=== PATIENT | male | born 1990 | race Caucasian/White ===

== ENCOUNTER 2017-03-28 20:22 | Emergency (ER) | payer OTHER ==
[~2017-03-28] VITALS: Ht 165.1 cm; Wt 83.9 kg
[~2017-03-28 20:22] MED LIST: CELEXA20 MG PO
[2017-03-28 20:27] VITALS: BP 138/66
--- NOTE | 2017-03-28 21:31 | NUR ---
PT TAKEN TO BED 6
[2017-03-28] MEDS ORDERED: NACL 0.9% 1,000 ML IV ONE (21:35)
[2017-03-28] MEDS ORDERED: PANTOPRAZOLE 40 MG INJ VIAL IVP ONE (21:35)
--- NOTE | 2017-03-28 21:40 | NUR ---
26 Y/O M W/C/O VOMITING WITH BLOOD X ONE TIME, AND ABD PAIN OFF AND ON X TODAY. VSS. MED HX ANXIETY, GASTRITIS, AND SURGERY ON L LEG. PT CURRENTLY TAKES CELEXA, RANITIDINE.DENIES D; SKIN IS PINK/WARM/DRY; AAOX4 WITH EVEN AND STEADY GAIT; LUNGS CLEAR BL; HR EVEN AND REGULAR; PT DENIES ANY FEVER, CP, SOB, OR COUGH AT THIS TIME; PATIENT STATES PAIN OF 4/10 AT THIS TIME; VSS; PATIENT POSITIONED FOR COMFORT; HOB ELEVATED; BEDRAILS UP X2; BED DOWN. ER MD MADE AWARE OF PT STATUS.
--- NOTE | 2017-03-28 22:39 | NUR ---
Dr. Dawn evaluating patient at bedside.
[2017-03-28 23:44] VITALS: BP 120/63
--- NOTE | 2017-03-28 23:44 | NUR ---
Patient discharged with v/s stable. Written and verbal after care instructions given and explained. Patient alert, oriented and verbalized understanding of instructions. Ambulatory with steady gait. All questions addressed prior to discharge. ID band removed. Patient advised to follow up with PMD. Rx of SENOKOT, BENTYL, OMEPRAZOLE, ZOFRAN given. Patient educated on indication of medication including possible reaction and side effects. Opportunity to ask questions provided and answered.
== END 2017-03-28 23:44 | disposition home or self-care (01) ==
LOC: MED 20:22
DX: R10.84 Generalized abdominal pain (principal); K92.0 Hematemesis
CPT/HCPCS: 36415; 74022; 80053; 85025; 85610; 85730; 96361; 96374; 99285; C9113; J7030

== ENCOUNTER 2017-04-03 22:08 | Emergency (ER) | payer OTHER ==
[~2017-04-03] VITALS: Ht 165.1 cm; Wt 83.9 kg
[2017-04-03 22:12] VITALS: BP 141/67
[2017-04-03] MEDS ORDERED: BENTYL10 MG PO (22:31)
[2017-04-03] MEDS ORDERED: OMEPRAZOLE40 MG PO (22:31)
[2017-04-03] MEDS ORDERED: SENNA8.6 M1 PO (22:31)
--- NOTE | 2017-04-03 23:15 | NUR ---
Patient taken to bed [address] via wheelchair per specimen technician.
--- NOTE | 2017-04-03 23:15 | NUR ---
26Y M BIB SELF C/O AB PAIN NON RADIAITING, X 1 DAY. PT STATES HE WAS HERE AT [place] A FEW DAYS AGO AND WAS GIVEN PRILOSEC, SENNA, AND BENTYL BUT GOT NO RELIEF. PT DENIES ANY N/V/D, PAIN 07/06. PT DENIES ANY SOB, CP, AT THE MOMENT
--- NOTE | 2017-04-03 23:25 | NUR ---
Dr. Dawn evaluating patient at bedside.
[2017-04-03] MEDS ORDERED: NACL 0.9% 1,000 ML IV ONE (23:30)
[2017-04-03] MEDS ORDERED: KETOROLAC 30 MG/ML VIAL IVP ONE (23:30)
--- NOTE | 2017-04-04 01:20 | NUR ---
IV removed, catheter intact and site benign. Applied folded 4x4 gauze and tape to stop bleeding.
[2017-04-04 01:26] VITALS: BP 137/72
--- NOTE | 2017-04-04 01:27 | NUR ---
Patient discharged with v/s stable. Written and verbal after care instructions given and explained. Patient alert, oriented and verbalized understanding of instructions. Ambulatory with steady gait. All questions addressed prior to discharge. ID band removed. Patient advised to follow up with PMD. Rx of ULTRAM 50MG given. Patient educated on indication of medication including possible reaction and side effects. Opportunity to ask questions provided and answered.
== END 2017-04-04 01:27 | disposition home or self-care (01) ==
LOC: MED 22:08
DX: R10.84 Generalized abdominal pain (principal)
CPT/HCPCS: 36415; 74176; 80053; 85025; 85610; 85730; 96361; 96374; 99285; J1885; J7030

== ENCOUNTER 2018-03-15 16:40 | Emergency (ER) | payer SELFPAY ==
[~2018-03-15] VITALS: Ht 167.6 cm; Wt 74.8 kg
[~2018-03-15 16:40] MED LIST changes: -CELEXA20 MG PO; +CITA20TA15 PO
[2018-03-15 16:49] VITALS: BP 123/65
--- NOTE | 2018-03-15 16:56 | NUR ---
gave report to ryan ortega
--- NOTE | 2018-03-15 16:57 | NUR ---
Patient ambulated to bed 1. RN evaulating patient at bedside.
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
--- NOTE | 2018-03-15 18:10 | NUR ---
PT. RESTING COMFORTABLY IN BED, RR EVEN AND UNLABORED, PT. IS AAOX4. WILL CONTINUE TO MONITOR.
--- NOTE | 2018-03-15 18:35 | NUR ---
PT. DENIES ANY CHEST PAIN OR SHOCKING SENSATION IN CHEST. RR EVEN AND UNLABORED. DR. CALVO AWARE. WILL CONTIUE TO MONITOR.
[2018-03-15 19:17] VITALS: BP 113/65
== END 2018-03-15 19:17 | disposition home or self-care (01) ==
LOC: MED 16:40
DX: R07.89 Other chest pain (principal); F41.9 Anxiety disorder, unspecified; F17.210 Nicotine dependence, cigarettes, uncomplicated; Z79.899 Other long term (current) drug therapy
CPT/HCPCS: 93005; 99283

== ENCOUNTER 2018-08-03 20:29 | Emergency (ER) | payer OTHER ==
[~2018-08-03] VITALS: Ht 165.1 cm; Wt 79.9 kg
[2018-08-03 20:37] VITALS: BP 130/59
--- NOTE | 2018-08-03 20:37 | NUR ---
TO BED # 8 AMBULATORY, REPORT GIVEN TO IRINA WHYTE
--- NOTE | 2018-08-03 20:40 | NUR ---
PT PRESENTED ER WITH A MEDICATION REFILL REQUEST. PT TRIED TO GET HIS MEDICATION OLANZAPINE 10 MG AND DIVALPROEX EXTENDED RELEASE FROM HIS PCP 2 TIMES BUT THE FACILITY WAS CLOSED. PT HAS HX OF BIPOLAR. KNA. A/O X 4. NO PAIN 0/10 AT THIS TIME. FAMILY AT BEDSIDE.STEADY GAIT; VSS; PATIENT POSITIONED FOR COMFORT; HOB ELEVATED; BEDRAILS UP X2; BED DOWN. ER MD MADE AWARE OF PT STATUS.
--- NOTE | 2018-08-03 21:54 | NUR ---
pt sitting in bed, vitals stable.
--- NOTE | 2018-08-03 22:00 | NUR ---
AWAITING DC ORDERS FROM DR JERRY.
--- NOTE | 2018-08-03 22:44 | NUR ---
Patient discharged with v/s stable. Written and verbal after care instructions given and explained. Patient alert, oriented and verbalized understanding of instructions. Ambulatory with steady gait. All questions addressed prior to discharge. ID band removed. Patient advised to follow up with PMD. Rx of DEPAKOTE 500MG, ZYPREXA 10MG given. Patient educated on indication of medication including possible reaction and side effects. Opportunity to ask questions provided and answered.
[2018-08-03 22:45] VITALS: BP 120/60
== END 2018-08-03 22:44 | disposition home or self-care (01) ==
LOC: MED 20:29
DX: F20.9 Schizophrenia, unspecified (principal); Z76.0 Encounter for issue of repeat prescription; Z79.899 Other long term (current) drug therapy
CPT/HCPCS: 99283

== ENCOUNTER 2018-10-21 15:24 | Emergency (ER) | payer OTHER ==
[~2018-10-21] VITALS: Ht 165.1 cm; Wt 86.6 kg
[2018-10-21 15:53] VITALS: BP 133/68
--- NOTE | 2018-10-21 16:00 | NUR ---
PT AMBULATED TO BED 3
--- NOTE | 2018-10-21 16:03 | NUR ---
28Y/M BIB SELF FOR MEDICATION REFILL. PT STATES HE RAN OUT OF MEDICATION AND NEED SOME TODAY. RX: OLANZAPINE 10MG, DIVALPROEX ER 500MG PMH: ANXIETY, BIPOLAR
[2018-10-21 16:48] VITALS: BP 133/68
--- NOTE | 2018-10-21 16:48 | NUR ---
Patient discharged with v/s stable. Written and verbal after care instructions given and explained. Patient alert, oriented and verbalized understanding of instructions. Ambulatory with steady gait. All questions addressed prior to discharge. ID band removed. Patient advised to follow up with PMD. Rx of Depakote and Zyprexa given. Patient educated on indication of medication including possible reaction and side effects. Opportunity to ask questions provided and answered.
== END 2018-10-21 16:48 | disposition home or self-care (01) ==
LOC: MED 15:24
DX: F20.9 Schizophrenia, unspecified (principal); F41.9 Anxiety disorder, unspecified; F31.9 Bipolar disorder, unspecified; Z76.0 Encounter for issue of repeat prescription; Z79.899 Other long term (current) drug therapy
CPT/HCPCS: 99283

== ENCOUNTER 2018-11-27 17:41 | Emergency (ER) | payer OTHER ==
[~2018-11-27] VITALS: Ht 160 cm; Wt 89.8 kg
[2018-11-27 17:46] VITALS: BP 144/91
--- NOTE | 2018-11-27 17:52 | NUR ---
PT AMBULATED TO ER BED 10
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
[2018-11-27] MEDS ORDERED: BACITRACIN OINT 500 UNITS/GM PKT TP ONE (18:15)
--- NOTE | 2018-11-27 18:25 | NUR ---
WOUND CARE PROVIDED BY TECH
[2018-11-27 18:42] VITALS: BP 148/87
--- NOTE | 2018-11-27 18:42 | NUR ---
Patient discharged with v/s stable. Written and verbal after care instructions given and explained. Patient alert, oriented and verbalized understanding of instructions. Ambulatory with steady gait. All questions addressed prior to discharge. ID band removed. Patient advised to follow up with PMD. Rx of AUGMENTIN 875MG given. Patient educated on indication of medication including possible reaction and side effects. Opportunity to ask questions provided and answered.
== END 2018-11-27 18:42 | disposition home or self-care (01) ==
LOC: MED 17:41
DX: S41.152A Open bite of left upper arm, initial encounter (principal); F17.210 Nicotine dependence, cigarettes, uncomplicated; Z79.899 Other long term (current) drug therapy; Y04.1XXA Assault by human bite, initial encounter; Y93.89 Activity, other specified; Y92.89 Other specified places as the place of occurrence of the external cause; Y99.8 Other external cause status
CPT/HCPCS: 90471; 90715; 99283

== ENCOUNTER 2018-12-26 22:42 | Emergency (ER) | payer OTHER ==
[~2018-12-26] VITALS: Ht 160 cm; Wt 79.4 kg
[2018-12-26 22:59] VITALS: BP 136/68
--- NOTE | 2018-12-26 23:04 | NUR ---
PT BIB SELF C/O NEEDING MEDICATION REFILL OF DEPAKOTE AND ZYPREXA. PT DENIES N/V/D; SKIN IS INTACT, PINK/WARM/DRY; AAOX4, PERRL, WITH EVEN AND STEADY GAIT; LUNGS CLEAR BL, BREATHING UNLABORED; HR EVEN AND REGULAR, BL PERIPHERAL PULSES PRESENT; BS ACTIVE X4, NO TENDERNESS TO PALPATION, NO HEPATOSPLENOMEGALLY PALPATED, RESONANT TO PERCUSSION; PT DENIES ANY FEVER, CP, SOB, OR COUGH AT THIS TIME; PT STATES 0/10 PAIN AT THIS TIME; VSS; PATIENT POSITIONED FOR COMFORT; HOB ELEVATED; BEDRAILS UP X2; BED DOWN.
--- NOTE | 2018-12-26 23:04 | NUR ---
PT AMBULATED TO BED 7, REPORT TO LALIT WHYTE
[2018-12-26 23:24] VITALS: BP 130/70
--- NOTE | 2018-12-26 23:24 | NUR ---
Patient discharged with v/s stable. Written and verbal after care instructions given and explained. Patient alert, oriented and verbalized understanding of instructions. Ambulatory with steady gait. All questions addressed prior to discharge. ID band removed. Patient advised to follow up with PMD. Rx of DEPAKOTE AND ZYPREXA given. Patient educated on indication of medication including possible reaction and side effects. Opportunity to ask questions provided and answered.
== END 2018-12-26 23:24 | disposition home or self-care (01) ==
LOC: MED 22:42
DX: F41.9 Anxiety disorder, unspecified (principal); Z76.0 Encounter for issue of repeat prescription; Z79.899 Other long term (current) drug therapy
CPT/HCPCS: 99283

== ENCOUNTER 2019-02-13 17:02 | Emergency (ER) | payer OTHER ==
[~2019-02-13] VITALS: Ht 170.2 cm; Wt 94.3 kg
[2019-02-13 17:20] VITALS: BP 124/96
--- NOTE | 2019-02-13 17:30 | NUR ---
PT AMBULATED TO BED CHC
--- NOTE | 2019-02-13 17:34 | NUR ---
PT C/O MED REFILL NEEDED OF DIVALPROEX 500 MG 1 TAB DAILY AND OLANZAPINE 10 MG ONCE DAILY. DENIES CP/SOB/NVD/OTHER COMPLAINTS.
[2019-02-13 19:59] VITALS: BP 125/75
--- NOTE | 2019-02-13 19:59 | NUR ---
Patient discharged with v/s stable. Written and verbal after care instructions given and explained. Patient alert, oriented and verbalized understanding of instructions. Ambulatory with steady gait. All questions addressed prior to discharge. ID band removed. Patient advised to follow up with PMD. Rx of DEPAKOTE AND OLANZAPINE given. Patient educated on indication of medication including possible reaction and side effects. Opportunity to ask questions provided and answered.
== END 2019-02-13 19:59 | disposition home or self-care (01) ==
LOC: MED 17:02
DX: F31.9 Bipolar disorder, unspecified (principal); Z76.0 Encounter for issue of repeat prescription; Z79.899 Other long term (current) drug therapy; Z98.890 Other specified postprocedural states
CPT/HCPCS: 99283

== ENCOUNTER 2019-05-10 16:34 | Emergency (ER) | payer OTHER ==
[~2019-05-10] VITALS: Ht 165.1 cm; Wt 100.7 kg
--- NOTE | 2019-05-10 16:39 | NUR ---
PATIENT AMBULATED TO BED 5.
[2019-05-10 16:42] VITALS: BP 136/90
--- NOTE | 2019-05-10 16:56 | NUR ---
28/M CAME HERE FOR MED REFILL. STATES HE WENT TO SEE DOCTOR TODAY AND HE LEFT EARLY AND WASN'T ABLE TO GET HIS RX. STATES HE HAS BEEN OUT OF MEDS X2 DAYS AND CANT SEE DOCTOR UNTIL NEXT FRIDAY.HX BIPOLAR. PATIENT STATES PAIN OF 0/10 AT THIS TIME. PATIENT POSITIONED FOR COMFORT; HOB ELEVATED; BEDRAILS UP X1; BED DOWN. ER MD MADE AWARE OF PT STATUS.
[2019-05-10 17:30] VITALS: BP 136/90
--- NOTE | 2019-05-10 17:30 | NUR ---
Patient discharged with v/s stable. Written and verbal after care instructions given and explained. Patient alert, oriented and verbalized understanding of instructions. Ambulatory with steady gait. All questions addressed prior to discharge. ID band removed. Patient advised to follow up with PMD. Rx of BUSPIRONE,DIVALPROEX&OLANZAPINE given. Patient educated on indication of medication including possible reaction and side effects. Opportunity to ask questions provided and answered.
== END 2019-05-10 17:30 | disposition home or self-care (01) ==
LOC: MED 16:34
DX: F31.9 Bipolar disorder, unspecified (principal); F41.9 Anxiety disorder, unspecified; R03.0 Elevated blood-pressure reading, without diagnosis of hypertension; Z76.0 Encounter for issue of repeat prescription; Z79.899 Other long term (current) drug therapy
CPT/HCPCS: 99283

== ENCOUNTER 2019-06-19 07:29 | Emergency (ER) | payer OTHER ==
[~2019-06-19] VITALS: Ht 175.3 cm; Wt 99.8 kg
[2019-06-19 07:30] VITALS: BP 128/68
--- NOTE | 2019-06-19 07:38 | NUR ---
PT AMBULATED TO ER BED 02
--- NOTE | 2019-06-19 07:44 | NUR ---
PT PRESENTS TO ED WITH C/O INTERMITENT RUQ ABD PAIN FOR THE PAST 2 DAYS. DENIES N/V/D OR FEVER; AFEBRILE AT THIS TIME. PT DENIES ANY TRAUMA/INJURY. REPORTS 9/10 PAIN AT THIS TIME. VSS. BED LOCKED AND IN LOWEST POSITION. ERMD TO EVALUATE PT.
[2019-06-19] MEDS ORDERED: KETOROLAC 15 MG/ML VIAL IM ONE (08:10)
--- NOTE | 2019-06-19 08:18 | NUR ---
MEDICATION ADMINISTERED ORDERED BY MD. METZGER AT THIS TIME.
[2019-06-19 08:35] LABS: BASOPHILS % (AUTO) 0.6 % (0.0-2.0); EOSINOPHILS # (AUTO) 0.2 K/uL (0-0.4); EOSINOPHILS % (AUTO) 3.3 % (0.0-4.0); HEMATOCRIT 39.1 % (36-52); HEMOGLOBIN 13.2 g/dL (12.0-18.0); LYMPHOCYTES # (AUTO) 1.7 K/uL (2.0-11.5); LYMPHOCYTES % (AUTO) 28.1 % (20.5-51.1); MEAN CORPUSCULAR HEMOGLOBIN 30 pg (27-31); MEAN CORPUSCULAR HGB CONC 34 g/dL (33-37); MEAN CORPUSCULAR VOLUME 88.5 fL (80-94); MONOCYTES # (AUTO) 0.6 K/uL (0.8-1.0); MONOCYTES % (AUTO) 9.6 % (1.7-9.3); NEUTROPHILS # (AUTO) 3.5 K/uL (1.8-7.7); NEUTROPHILS % (AUTO) 58.4 % (42.2-75.2); PLATELET COUNT (AUTO) 306 K/uL (140-450); RED BLOOD CELL COUNT(AUTO) 4.42 MIL/uL (4.20-6.10); RED CELL DISTRIBUTION WIDTH 13.7 % (11.6-13.7); WHITE BLOOD COUNT (AUTO) 6.1 K/uL (4.8-10.8)
[2019-06-19 08:49] LABS: ANION GAP 12.1 (8-16); CARBON DIOXIDE 27.1 mmol/L (21-32); CREATININE 0.9 mg/dL (0.7-1.3); POTASSIUM 4.2 mmol/L (3.5-5.1)
[2019-06-19 08:56] LABS: ALBUMIN 3.3 g/dL (3.4-5.0); TOTAL BILIRUBIN 0.4 mg/dL (0.0-1.0)
[2019-06-19 09:21] VITALS: BP 126/72
--- NOTE | 2019-06-19 09:22 | NUR ---
Patient discharged with v/s stable. Written and verbal after care instructions given and explained. Patient verbalized understanding. Ambulatory with steady gait. All questions addressed prior to discharge. Advised to follow up with PMD.
== END 2019-06-19 09:22 | disposition home or self-care (01) ==
LOC: MED 07:29
DX: M94.0 Chondrocostal junction syndrome [Tietze] (principal); Z79.899 Other long term (current) drug therapy
CPT/HCPCS: 36415; 71046; 80053; 83690; 83880; 84484; 85025; 93005; 96372; 99284; J1885

== ENCOUNTER 2019-10-24 18:02 | Emergency (ER) | payer OTHER ==
[~2019-10-24] VITALS: Ht 170.2 cm; Wt 81.6 kg
[2019-10-24 18:10] VITALS: BP 137/80
--- NOTE | 2019-10-24 18:20 | NUR ---
WAIT AT LOBBY
--- NOTE | 2019-10-24 19:54 | NUR ---
PT TAKEN TO BED 5
--- NOTE | 2019-10-24 19:59 | NUR ---
29 Y/O MALE PRESENTS TO ER FOR MEDICATION REFILL FOR BIPOLAR MEDICATIONS. PT STATES HE HAS NOT BEEN ABLE TO GET AHOLD OF HIS DOCTOR AND RAN OUT X 3 DAYS AGO. PT STATES HE NEED OLANZAPINE, DIVALPROEX, AND BUSPIRONE. PT SITTING IN CHAIR CALM AND PLEASANT. VSS MEDHX: BIPOLAR ALLERGIES: NKA
--- NOTE | 2019-10-24 20:00 | NUR ---
PA AT BEDSIDE EXAMINING PT.
--- NOTE | 2019-10-24 20:28 | NUR ---
Patient discharged with v/s stable. Written and verbal after care instructions given and explained. Patient alert, oriented and verbalized understanding of instructions. Ambulatory with steady gait. All questions addressed prior to discharge. ID band removed. Patient advised to follow up with PMD. Rx of DICALPROEX, ROBITUSSIN, BUSPIRONE, AND OLANZAPINE given. Patient educated on indication of medication including possible reaction and side effects. Opportunity to ask questions provided and answered.
== END 2019-10-24 20:28 | disposition home or self-care (01) ==
LOC: MED 18:02
DX: R05 Cough (principal); F31.9 Bipolar disorder, unspecified; Z76.0 Encounter for issue of repeat prescription; Z79.899 Other long term (current) drug therapy
CPT/HCPCS: 99283

== ENCOUNTER 2019-12-06 09:21 | Emergency (ER) | payer OTHER ==
[~2019-12-06] VITALS: Ht 167.6 cm; Wt 114.3 kg
[2019-12-06 09:33] VITALS: BP 145/87
--- NOTE | 2019-12-06 09:36 | NUR ---
Patient ambulated to 1. RN evaluating patient at bedside.
--- NOTE | 2019-12-06 09:46 | NUR ---
BIB SELF REQUESTING MED REFILL FOR OLANZAPINE, BUPIRONE HYDRPOCHLORIDE, DIVALPROEX SODIUM. HX: BIPOLAR
--- NOTE | 2019-12-06 10:13 | NUR ---
Patient discharged with v/s stable. Written and verbal after care instructions given and explained. Patient alert, oriented and verbalized understanding of instructions. Ambulatory with steady gait. All questions addressed prior to discharge. ID band removed. Patient advised to follow up with PMD. Rx of ZYPREXA, BUSPAR, DIVALPROEX given. Patient educated on indication of medication including possible reaction and side effects. Opportunity to ask questions provided and answered.
== END 2019-12-06 10:13 | disposition home or self-care (01) ==
LOC: MED 09:21
DX: F41.9 Anxiety disorder, unspecified (principal); F31.9 Bipolar disorder, unspecified; Z76.0 Encounter for issue of repeat prescription; Z79.899 Other long term (current) drug therapy
CPT/HCPCS: 99281

== ENCOUNTER 2021-02-11 01:04 | Emergency (ER) | payer OTHER ==
[~2021-02-11] VITALS: Ht 165.1 cm; Wt 136.1 kg
[2021-02-11 01:16] VITALS: BP 153/85
[2021-02-11] MEDS ORDERED: ACETAMINOPHEN EXTRA STRENGTH 500 MG TAB PO ONE (03:45)
[2021-02-11] MEDS ORDERED: KETOROLAC 30 MG/ML VIAL IVP ONE (03:45)
[2021-02-11] MEDS ORDERED: KETOROLAC 30 MG/ML VIAL IM ONE (04:00)
[2021-02-11] MEDS ORDERED: IBUP-1842 PO (05:19)
[2021-02-11] MEDS ORDERED: ACET-9882 PO (05:19)
[2021-02-11] MEDS ORDERED: LID5T TP (05:19)
[2021-02-11] MEDS ORDERED: LOTC TP (05:20)
[2021-02-11] MEDS ORDERED: BUS5 PO (05:20)
[2021-02-11 05:30] VITALS: BP 123/75
== END 2021-02-11 05:30 | disposition home or self-care (01) ==
LOC: MED 01:04
DX: M25.552 Pain in left hip (principal); Z76.0 Encounter for issue of repeat prescription
CPT/HCPCS: 72170; 73501; 73552; 96372; 99284; J1885

== ENCOUNTER 2022-05-12 02:47 | Emergency (ER) | payer OTHER ==
[~2022-05-12] VITALS: Ht 167.6 cm; Wt 95.3 kg
[2022-05-12 02:47] VITALS: BP 150/90
[~2022-05-12 02:47] MED LIST changes: +ACET-9882 PO; +BUS5 PO; +IBUP-1842 PO; +LID5T TP; +LOTC TP
--- NOTE | 2022-05-12 02:47 | NUR ---
PT JAKE BLS FOR ANXIETY
--- NOTE | 2022-05-12 02:52 | NUR ---
PT TO BED AT THIS TIME
[2022-05-12] MEDS ORDERED: LORazepam 1 MG TAB PO ONE (03:35)
--- NOTE | 2022-05-12 03:37 | NUR ---
PATIENT DEMONSTRATES ANXIETY RELATED SYMPTOMS BASED OFF MEDICATION HE TAKES AT HOME FOR BIPOLAR DISORDER. PATIENT UNAWARE OF MEDICATION NAME OR DOSE. VITAL SIGNS STABLE.
[2022-05-12] MEDS ORDERED: clonazePAM 0.5 MG TAB PO ONE (03:45)
[2022-05-12 04:05] VITALS: BP 124/82
== END 2022-05-12 04:20 | disposition home or self-care (01) ==
LOC: MED 02:47
DX: F41.9 Anxiety disorder, unspecified (principal); F32.9 Major depressive disorder, single episode, unspecified; Z91.14 Patient's other noncompliance with medication regimen; Z79.899 Other long term (current) drug therapy
CPT/HCPCS: 99283

== ENCOUNTER 2022-05-14 03:30 | Emergency (ER) | payer OTHER ==
[~2022-05-14] VITALS: Ht 167.6 cm; Wt 99.8 kg
[2022-05-14 03:30] VITALS: BP 130/87
--- NOTE | 2022-05-14 03:33 | NUR ---
TO GERTRUDEBY JAKE FROM HOME, WITH C/O ANXIETY
[2022-05-14] MEDS ORDERED: diazePAM 5 MG TAB PO ONE (03:40)
[2022-05-14 04:29] VITALS: BP 130/87
== END 2022-05-14 04:29 | disposition home or self-care (01) ==
LOC: MED 03:30
DX: R00.2 Palpitations (principal); F41.9 Anxiety disorder, unspecified; Z79.899 Other long term (current) drug therapy
CPT/HCPCS: 93005; 99283

== ENCOUNTER 2022-05-23 17:07 | Emergency (ER) | payer OTHER ==
[~2022-05-23] VITALS: Ht 167.6 cm; Wt 108.9 kg
[2022-05-23 17:33] VITALS: BP 132/87
--- NOTE | 2022-05-23 17:48 | NUR ---
PT AMBULATED TO ER BED 11 WITH A STEADY GAIT.
--- NOTE | 2022-05-23 17:51 | NUR ---
31 Y/O MALE C/O HEART PALPITATIONS AND ANXIETY X1HR. PT REPORTS HAVING STOPPED DRINKING 2-3 WEEKS AGO AFTER DRINKING 2-32OZ BEER. DENIES FEVER/CHILLS. DENIES N/V/D. PMHX: BIPOLAR, ANXIETY ALLERGIES: NKA HOME MEDS: DEPAKOTE 500MG BID, BUSPIRONE 7.5 MH QD, HYDROXYZINE 25MG QID
--- NOTE | 2022-05-23 17:53 | NUR ---
DR. SINGH AT PT BEDSIDE FOR FURTHER EVALUATION.
[2022-05-23 19:04] VITALS: BP 128/82
--- NOTE | 2022-05-23 19:04 | NUR ---
Patient discharged with v/s stable. Written and verbal after care instructions given FOR PALPITATIONS and explained. Patient verbalized understanding. Ambulatory with steady gait. All questions addressed prior to discharge. Advised to follow up with PMD.
== END 2022-05-23 19:04 | disposition home or self-care (01) ==
LOC: MED 17:07
DX: R00.2 Palpitations (principal); F41.9 Anxiety disorder, unspecified; F32.9 Major depressive disorder, single episode, unspecified; Z79.899 Other long term (current) drug therapy
CPT/HCPCS: 93005; 99283

== ENCOUNTER 2022-05-25 00:10 | Emergency (ER) | payer OTHER ==
[~2022-05-25] VITALS: Ht 167.6 cm; Wt 104.3 kg
[2022-05-25 00:20] VITALS: BP 157/91
--- NOTE | 2022-05-25 01:52 | NUR ---
Dr. Ny examining patient.
[2022-05-25] MEDS ORDERED: LORazepam 1 MG TAB PO ONE (01:55)
[2022-05-25] MEDS ORDERED: LORazepam 1 MG TAB ONE (02:00)
[2022-05-25 02:20] VITALS: BP 145/82
== END 2022-05-25 02:20 | disposition home or self-care (01) ==
LOC: MED 00:10
DX: R41.0 Disorientation, unspecified (principal); R42 Dizziness and giddiness; Z79.899 Other long term (current) drug therapy
CPT/HCPCS: 99283

== ENCOUNTER 2022-06-27 21:43 | Emergency (ER) | payer OTHER ==
[~2022-06-27] VITALS: Ht 167.6 cm; Wt 90.7 kg
[2022-06-27 21:43] VITALS: BP 130/65
[2022-06-27 22:25] LABS: BASOPHILS # (AUTO) 0.1 K/uL (0.00-0.22); BASOPHILS % (AUTO) 0.6 % (0.0-2.0); EOSINOPHILS # (AUTO) 0.3 K/uL (0-0.4); EOSINOPHILS % (AUTO) 3.3 % (0.0-4.0); HEMATOCRIT 42.4 % (36-52); HEMOGLOBIN 14.4 g/dL (12.0-18.0); LYMPHOCYTES # (AUTO) 2.1 K/uL (2.0-11.5); LYMPHOCYTES % (AUTO) 23.6 % (20.5-51.1); MEAN CORPUSCULAR HEMOGLOBIN 30 pg (27-31); MEAN CORPUSCULAR HGB CONC 34 g/dL (33-37); MEAN CORPUSCULAR VOLUME 88.3 fL (80-94); MONOCYTES # (AUTO) 0.6 K/uL (0.8-1.0); NEUTROPHILS # (AUTO) 5.9 K/uL (1.8-7.7); NEUTROPHILS % (AUTO) 65.5 % (42.2-75.2); PLATELET COUNT (AUTO) 452 K/uL (140-450); RED CELL DISTRIBUTION WIDTH 13.9 % (11.6-13.7); WHITE BLOOD COUNT (AUTO) 9.1 K/uL (4.8-10.8)
[2022-06-27 22:44] LABS: ANION GAP 10.9 (8-16); CARBON DIOXIDE 28.4 mmol/L (21-32); CREATININE 0.9 mg/dL (0.6-1.3); POTASSIUM 3.3 mmol/L (3.5-5.1)
[2022-06-27 23:01] LABS: BARBITURATE, URINE NEGATIVE ng/ml (NEG <=200); BENZODIAZEPINE, URINE NEGATIVE ng/mL (NEG <=200); CANNABINOID, URINE NEGATIVE ng/mL (NEG <=50); COCAINE, URINE NEGATIVE ng/mL (NEG <=300); OPIATE, URINE NEGATIVE ng/mL (NEG <=2000); PHENCYCLIDINE SCREEN,URINE NEGATIVE ng/mL (NEG <=25)
[2022-06-28] MEDS ORDERED: HYDROXYZINE HYDROCHLORIDE 25 MG TAB PO STA (02:28)
[2022-06-28] MEDS ORDERED: POTASSIUM CHLORIDE 10 MEQ TABER PO ONE (02:45)
[2022-06-28 03:02] VITALS: BP 125/65
== END 2022-06-28 03:02 | disposition home or self-care (01) ==
LOC: MED 21:43
DX: F41.9 Anxiety disorder, unspecified (principal); F17.210 Nicotine dependence, cigarettes, uncomplicated; Z79.899 Other long term (current) drug therapy; Z71.6 Tobacco abuse counseling; Z98.890 Other specified postprocedural states
CPT/HCPCS: 36415; 80048; 80305; 85025; 93005; 99284

== ENCOUNTER 2023-05-19 23:14 | Emergency (ER) | payer OTHER ==
[~2023-05-19] VITALS: Ht 167.6 cm; Wt 117.9 kg
[2023-05-19 23:25] VITALS: BP 145/90; PULSE 91; RESP 16; TEMP 98; O2SAT 97
--- NOTE | 2023-05-19 23:28 | NUR ---
TO LOBBY A/W BED AMBULATORY
--- NOTE | 2023-05-20 00:15 | NUR ---
PT TO BED 1
[2023-05-20 01:00] VITALS: TEMP 98
--- NOTE | 2023-05-20 01:00 | NUR ---
Patient is a 32/M who came in due to panic attack lasting 20 minutes which patient noticed after drinking energy drink at 2200. Patient denies chest pian or SOB. PMHx: Anxiety NKA
[2023-05-20] MEDS ORDERED: LORazepam 1 MG TAB PO ONE (01:05)
[2023-05-20] MEDS ORDERED: HYDR25CA1 PO (01:23)
[2023-05-20 01:45] VITALS: BP 128/79; PULSE 85; RESP 16; O2SAT 97
--- NOTE | 2023-05-20 01:47 | NUR ---
Patient discharged with v/s stable. Written and verbal after care instructions given and explained. Patient alert, oriented and verbalized understanding of instructions. Ambulatory with steady gait. All questions addressed prior to discharge. ID band removed. Patient advised to follow up with PMD. Rx of Vistaril given. Patient educated on indication of medication including possible reaction and side effects. Opportunity to ask questions provided and answered.
== END 2023-05-20 01:47 | disposition home or self-care (01) ==
LOC: MED 23:14
DX: F41.0 Panic disorder [episodic paroxysmal anxiety] (principal); Z79.899 Other long term (current) drug therapy
CPT/HCPCS: 93005; 99283

== ENCOUNTER 2023-10-18 10:55 | Emergency (ER) | payer OTHER ==
[~2023-10-18] VITALS: Ht 167.6 cm; Wt 108.9 kg
[~2023-10-18 10:55] MED LIST changes: +HYDR25CA1 PO
[2023-10-18 11:05] VITALS: BP 149/102; PULSE 95; RESP 15; TEMP 97.4; O2SAT 99
[2023-10-18] MEDS ORDERED: ABI10 PO (11:18)
== END 2023-10-18 11:29 | disposition home or self-care (01) ==
LOC: MED 10:55
DX: F20.9 Schizophrenia, unspecified (principal); Z76.0 Encounter for issue of repeat prescription; Z79.899 Other long term (current) drug therapy
CPT/HCPCS: 99281

== ENCOUNTER 2023-10-20 00:35 | Emergency (ER) | payer OTHER ==
[~2023-10-20] VITALS: Ht 170.2 cm; Wt 104.3 kg
[~2023-10-20 00:35] MED LIST changes: +ABI10 PO
[2023-10-20 00:37] VITALS: BP 183/87; PULSE 107; RESP 19; TEMP 97.9; O2SAT 97
[2023-10-20] MEDS ORDERED: HALOPERIDOL IM 5 MG/ML VIAL IM ONE (01:45)
[2023-10-20 02:01] VITALS: BP 131/98; PULSE 102; RESP 20; TEMP 98; O2SAT 98
[2023-10-20] MEDS ORDERED: CITA-71 PO (02:32)
[2023-10-20] MEDS ORDERED: HYDR25CA10 PO (02:32)
[2023-10-20] MEDS ORDERED: ABI10 PO (02:32)
== END 2023-10-20 02:39 | disposition home or self-care (01) ==
LOC: MED 00:35
DX: F20.0 Paranoid schizophrenia (principal); Z79.899 Other long term (current) drug therapy; Z79.1 Long term (current) use of non-steroidal anti-inflammatories (NSAID)
CPT/HCPCS: 96372; 99283; J1630

== ENCOUNTER 2023-11-08 00:38 | Emergency (ER) | payer OTHER ==
[~2023-11-08] VITALS: Ht 167.6 cm; Wt 104.3 kg
[~2023-11-08 00:38] MED LIST changes: +CITA-71 PO; +HYDR25CA10 PO
[2023-11-08 00:40] VITALS: BP 150/90; PULSE 102; RESP 18; TEMP 97.8; O2SAT 98
[2023-11-08] MEDS ORDERED: LORazepam 0.5 MG TAB PO ONE (02:50)
[2023-11-08] MEDS ORDERED: ATA25 PO (02:51)
[2023-11-08 05:30] VITALS: BP 121/79; PULSE 89; RESP 16; TEMP 98; O2SAT 98
[2023-11-08] MEDS ORDERED: LORazepam 0.5 MG TAB ONE (05:39)
== END 2023-11-08 05:30 | disposition home or self-care (01) ==
LOC: MED 00:38
DX: F41.9 Anxiety disorder, unspecified (principal); R42 Dizziness and giddiness; Z79.899 Other long term (current) drug therapy; Z79.1 Long term (current) use of non-steroidal anti-inflammatories (NSAID)
CPT/HCPCS: 99283

== ENCOUNTER 2023-11-10 02:29 | Emergency (ER) | payer OTHER ==
[~2023-11-10] VITALS: Ht 162.6 cm; Wt 129.7 kg
[~2023-11-10 02:29] MED LIST changes: +ATA25 PO
[2023-11-10 03:14] VITALS: BP 135/85; PULSE 100; RESP 19; TEMP 97.6; O2SAT 99
[2023-11-10] MEDS ORDERED: LORazepam 0.5 MG TAB PO ONE (04:10)
== END 2023-11-10 06:00 | disposition home or self-care (01) ==
LOC: MED 02:29
DX: F41.9 Anxiety disorder, unspecified (principal); F20.9 Schizophrenia, unspecified; F17.200 Nicotine dependence, unspecified, uncomplicated; Z79.899 Other long term (current) drug therapy; Z79.1 Long term (current) use of non-steroidal anti-inflammatories (NSAID)
CPT/HCPCS: 99281

== ENCOUNTER 2023-11-13 07:17 | Emergency (ER) | payer OTHER ==
[~2023-11-13] VITALS: Ht 175.3 cm; Wt 136.1 kg
[2023-11-13 07:48] VITALS: BP 127/91; PULSE 91; RESP 18; TEMP 97.6; O2SAT 98
[2023-11-13 09:11] VITALS: BP 127/91; PULSE 91; RESP 18; TEMP 97.6; O2SAT 98
== END 2023-11-13 09:12 | disposition home or self-care (01) ==
LOC: MED 07:17
DX: F41.9 Anxiety disorder, unspecified (principal); R07.9 Chest pain, unspecified; R20.0 Anesthesia of skin; Z79.899 Other long term (current) drug therapy
CPT/HCPCS: 99281

== ENCOUNTER 2024-03-26 22:24 | Emergency (ER) | payer OTHER ==
[~2024-03-26] VITALS: Ht 167.6 cm; Wt 140.6 kg
[2024-03-26 22:27] VITALS: BP 145/91; PULSE 98; RESP 20; TEMP 97.4; O2SAT 100
[2024-03-27] MEDS: LORazepam 1 MG TAB PO ONE (00:05)
[2024-03-28] MEDS ORDERED: ATA25 PO (18:01)
== END 2024-03-27 00:30 | disposition home or self-care (01) ==
LOC: MED 22:24
DX: F41.9 Anxiety disorder, unspecified (principal); Z79.1 Long term (current) use of non-steroidal anti-inflammatories (NSAID); Z79.899 Other long term (current) drug therapy
CPT/HCPCS: 99283

== ENCOUNTER 2024-03-28 16:53 | Emergency (ER) | payer OTHER ==
[~2024-03-28] VITALS: Ht 167.6 cm; Wt 104.3 kg
[2024-03-28 17:07] VITALS: BP 137/73; PULSE 107; RESP 20; TEMP 99; O2SAT 97
[2024-03-28] MEDS: LORazepam 1 MG TAB PO ONE (17:37)
[2024-03-28] MEDS ORDERED: ATA25 PO (18:01)
== END 2024-03-28 18:05 | disposition home or self-care (01) ==
LOC: MED 16:53
DX: F41.9 Anxiety disorder, unspecified (principal); R06.02 Shortness of breath; F20.9 Schizophrenia, unspecified; R03.0 Elevated blood-pressure reading, without diagnosis of hypertension; Z79.1 Long term (current) use of non-steroidal anti-inflammatories (NSAID); Z79.899 Other long term (current) drug therapy
CPT/HCPCS: 99283

== ENCOUNTER 2024-03-28 21:18 | Emergency (ER) | payer OTHER ==
[~2024-03-28] VITALS: Ht 167.6 cm; Wt 104.3 kg
[2024-03-28 21:38] VITALS: BP 132/82; PULSE 92; RESP 16; TEMP 98.3; O2SAT 98
[2024-03-28 22:42] VITALS: O2SAT 98
== END 2024-03-28 23:28 | disposition home or self-care (01) ==
LOC: MED 21:18
DX: F41.9 Anxiety disorder, unspecified (principal); Z73.5 Social role conflict, not elsewhere classified; Z79.1 Long term (current) use of non-steroidal anti-inflammatories (NSAID); Z79.899 Other long term (current) drug therapy
CPT/HCPCS: 99281

== ENCOUNTER 2024-04-30 13:19 | Emergency (ER) | payer SELFPAY ==
[~2024-04-30] VITALS: Ht 170.2 cm; Wt 125.2 kg
[2024-04-30 13:22] VITALS: BP 144/80; PULSE 104; RESP 18; TEMP 98.9; O2SAT 97
[2024-04-30 14:44] VITALS: BP 134/60; PULSE 78; RESP 18; TEMP 97.3; O2SAT 99
== END 2024-04-30 14:44 | disposition home or self-care (01) ==
LOC: MED 13:19
DX: T67.5XXA Heat exhaustion, unspecified, initial encounter (principal); Z79.899 Other long term (current) drug therapy; W92.XXXA Exposure to excessive heat of man-made origin, initial encounter; Y93.89 Activity, other specified; Y92.89 Other specified places as the place of occurrence of the external cause; Y99.8 Other external cause status
CPT/HCPCS: 99281